=== PATIENT | female | born 1980 | race Caucasian/White ===

== ENCOUNTER 2023-11-10 10:41 | Emergency (ER) | payer MEDICAID ==
[~2023-11-10] VITALS: Ht 165.1 cm; Wt 74.8 kg
[2023-11-10 11:17] LABS: BASOPHILS # (AUTO) 0.1 K/uL (0.0-0.2); BASOPHILS % (AUTO) 1.1 % (0.0-2.0); EOSINOPHILS # (AUTO) 0.5 K/uL (0.0-0.7); EOSINOPHILS % (AUTO) 4.6 % (0.0-6.0); HEMATOCRIT 41 % (33-45); HEMOGLOBIN 13.4 g/dL (11.5-14.8); LYMPHOCYTES # (AUTO) 2.6 K/uL (0.8-4.8); LYMPHOCYTES % (AUTO) 24.5 % (20.0-44.0); MEAN CORPUSCULAR HEMOGLOBIN 30 PG (26.0-33.0); MEAN CORPUSCULAR HGB CONC 33 g/dl (31.0-36.0); MEAN CORPUSCULAR VOLUME 90 fL (82-100); MONOCYTES # (AUTO) 0.7 K/uL (0.1-1.30); MONOCYTES % (AUTO) 6.4 % (2.0-12.0); NEUTROPHILS # (AUTO) 6.7 K/uL (1.8-8.9); NEUTROPHILS % (AUTO) 63.4 % (43.0-81.0); PLATELET COUNT (AUTO) 360 K/uL (150-450); RED BLOOD CELL COUNT(AUTO) 4.51 MIL/uL (4.0-5.2); RED CELL DISTRIBUTION WIDTH 13.5 % (11.5-15.0); WHITE BLOOD COUNT (AUTO) 10.6 K/uL (4.3-11.0)
[2023-11-10] MEDS ORDERED: CT SWABBABLE VALVE TRANS SET 1 EA INFUS.SET MC ONE (11:27)
[2023-11-10] MEDS ORDERED: IOHEXOL-350 100 ML VIAL IV ONE (11:27)
[2023-11-10] MEDS ORDERED: IOHEXOL-300 100 ML VIAL IV ONE (11:27)
[2023-11-10] MEDS ORDERED: IV NS 0.9% 250 ML IV ONE (11:27)
[2023-11-10 11:32] LABS: CALCIUM, SERUM 9.6 mg/dL (8.5-10.1); CREATININE 0.8 mg/dL (0.6-1.3); POTASSIUM 3.9 mmol/L (3.5-5.1)
[2023-11-10] MEDS ORDERED: HYDROMORPHONE 1 MG/1 ML DISP.SYRIN ONE ×3 (11:32→18:06)
[2023-11-10 11:38] LABS: ALBUMIN 3.7 g/dL (3.4-5.0); BILIRUBIN,DIRECT 0.1 mg/dL (0.0-0.2); BILIRUBIN,TOTAL 0.6 mg/dL (0.2-1.0); TOTAL PROTEIN, SERUM 7.8 g/dL (6.4-8.2)
[2023-11-10] MEDS: HYDROMORPHONE 1 MG/1 ML DISP.SYRIN IV ONE ×3 (11:40→15:30)
[2023-11-10] MEDS ORDERED: KETOROLAC TROMETHAMINE INJ 30 MG/ML VIAL ONE (14:48)
[2023-11-10] MEDS: KETOROLAC TROMETHAMINE INJ 30 MG/ML VIAL IV ONE (14:50)
[2023-11-10] MEDS: IV NS 0.9% 1,000 ML BAG IV ONE (16:35)
[2023-11-10] MEDS: PIPERACILLIN /TAZOBACTAM 3.375 G in IV D5W 50 ML IV ONE (16:36)
[2023-11-10] MEDS ORDERED: ONDANSETRON HCL/PF 4 MG/2 ML VIAL ONE ×2 (17:42→22:45)
[2023-11-10] MEDS: ONDANSETRON HCL/PF 4 MG/2 ML VIAL IV ONE (17:45)
[2023-11-10] MEDS: KETOROLAC TROMETHAMINE 15 MG/ML VIAL IV ONE ×2 (18:10→21:51)
[2023-11-10] MEDS ORDERED: KETOROLAC TROMETHAMINE 15 MG/ML VIAL ONE ×2 (18:10→21:44)
[2023-11-10] MEDS: ONDANSETRON HCL/PF - ER 4 MG/2 ML VIAL IV ONE (22:47)
[2023-11-11 00:51] LABS: APPEARANCE,URINE CLEAR (CLEAR); BILIRUBIN,URINE 1+ (NEGATIVE); BLOOD, URINE NEGATIVE Ery/uL (NEGATIVE); COLOR,URINE YELLOW (YELLOW); KETONES,URINE 2+ mg/dL (NEGATIVE); LEUKOCYTE ESTERASE ,URINE NEGATIVE (NEGATIVE); NITRITE, URINE NEGATIVE (NEGATIVE); PREGNANCY TEST URINE QUAL NEGATIVE (NEGATIVE); PROTEIN,URINE NEGATIVE (NEGATIVE); UGLUCOSE NEGATIVE (NEGATIVE); UROBILINOGEN,URINE 0.2 EU/dL (0.2)
[2023-11-11 01:18] LABS: ADD URINE CULTURE NO; BACTERIA,URINE 1+ /HPF (None Seen); RBC,URINE NONE SEEN /HPF (0-2); WBC,URINE NONE SEEN /HPF (0-3)
[2023-11-11] MEDS: IV NS 0.9% 1,000 ML BAG IV ONE (01:20)
[2023-11-11] MEDS ORDERED: HYDROMORPHONE 1 MG/1 ML DISP.SYRIN ONE ×2 (01:21→16:13)
[2023-11-11] MEDS: HYDROMORPHONE 1 MG/1 ML DISP.SYRIN IV ONE ×2 (01:23→16:23)
[2023-11-11] MEDS ORDERED: HYDROMORPHONE INJ 2 MG/ML DISP.SYRIN ONE (05:17)
[2023-11-11] MEDS: HYDROMORPHONE INJ 2 MG/ML DISP.SYRIN IV ONE (05:19)
[2023-11-11] MEDS ORDERED: ONDANSETRON HCL/PF 4 MG/2 ML VIAL ONE ×4 (05:20→16:19)
[2023-11-11] MEDS: ONDANSETRON HCL/PF - ER 4 MG/2 ML VIAL IV ONE ×2 (05:30→06:30)
[2023-11-11] MEDS: MORPHINE SULFATE INJ 2 MG/ML DISP.SYRIN IV ONE ×2 (06:30→12:02)
[2023-11-11] MEDS ORDERED: MORPHINE SULFATE INJ 4 MG/ML DISP.SYRIN ONE ×2 (06:32→11:48)
[2023-11-11] MEDS ORDERED: LORAZEPAM INJ 2 MG/ML VIAL ONE (06:59)
[2023-11-11] MEDS: LORAZEPAM INJ 2 MG/ML VIAL IV ONE (07:00)
[2023-11-11] MEDS: CHLORDIAZEPOXIDE HCL 25 MG CAPSULE PO ONE (08:57)
[2023-11-11 12:00] VITALS: TEMP 98.6
[2023-11-11] MEDS: ONDANSETRON HCL/PF 4 MG/2 ML VIAL IV ONE ×2 (12:00→16:24)
[2023-11-11 17:06] VITALS: BP 127/81; O2SAT 98
== END 2023-11-11 16:20 | disposition left against medical advice (07) ==
LOC: ER 11:02
DX: G89.18 Other acute postprocedural pain (principal); R10.84 Generalized abdominal pain; Z98.890 Other specified postprocedural states
CPT/HCPCS: 99285; 74177; 96365; 96375 ×3; 71045; 87426; 96376 ×3; 85025; 80048; 83690; 80076; 36415; 96361; 84703; 81001; J1885 ×3; J2405 ×9; J2543; J7060; J7050; Q9967 ×2; J1170 ×5; J2060; J2270 ×2; J7030